=== PATIENT | male | born 1980 | race Caucasian/White ===

== ENCOUNTER 2021-09-02 17:55 | Emergency (ER) | payer OTHER ==
[~2021-09-02] VITALS: Ht 175 cm; Wt 90.0 kg
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
[2021-09-02 19:07] LABS: BASOPHILS % (AUTO) 0 % (0-10); EOSINOPHILS # (AUTO) 0.2 10^3/uL (0.0-0.3); EOSINOPHILS % (AUTO) 2 % (0-10); HEMATOCRIT 47 % (40-54); HEMOGLOBIN 15.6 g/dL (13.3-17.7); LYMPHOCYTES # (AUTO) 2.2 10^3/uL (1.0-4.0); LYMPHOCYTES % (AUTO) 32 % (12-44); MEAN CORPUSCULAR HEMOGLOBIN 29 pg (25-34); MEAN CORPUSCULAR HGB CONC 34 g/dL (32-36); MEAN CORPUSCULAR VOLUME 87 fL (80-99); MEAN PLATELET VOLUME 9.3 fL (9.0-12.2); MONOCYTES # (AUTO) 0.6 10^3/uL (0.0-1.0); MONOCYTES % (AUTO) 8 % (0-12); NEUTROPHILS # (AUTO) 4.1 10^3/uL (1.8-7.8); NEUTROPHILS % (AUTO) 58 % (42-75); PLATELET COUNT 241 10^3/uL (130-400); WHITE BLOOD COUNT 7.1 10^3/uL (4.3-11.0)
[2021-09-02 19:43] LABS: ALBUMIN 4.1 GM/DL (3.2-4.5); BILIRUBIN,TOTAL 0.5 MG/DL (0.1-1.0); CALCIUM 8.9 MG/DL (8.5-10.1); CREATININE SERUM 1.04 MG/DL (0.60-1.30); POTASSIUM 4.1 MMOL/L (3.6-5.0); TOTAL PROTEIN 6.9 GM/DL (6.4-8.2)
--- NOTE | 2021-09-02 20:20 | Diagnostic Imaging Report ---
Clinical indication: Patient with headache for the past 6 months. Exam: Axial CT scan of the brain without IV contrast with coronal and sagittal reformatted images. Auto Exposure Controls were utilized during the CT exam to meet ALARA standards for radiation dose reduction. Comparison: None. Findings: There is no evidence of acute cerebral infarct, intracranial hemorrhage or gross mass effect. The brain parenchymal volume appears appropriate for patient's age. There is normal persaud-white matter distinction. There is no significant midline shift or herniation. There is no evidence of hydrocephalus. The basal cisterns are unremarkable. The skull, extracranial soft tissue and orbits are unremarkable. There is moderate mucosal thickening and fluid in the left maxillary sinus. There is mild mucosal thickening and fluid in the right maxillary sinus. There is mild mucosal thickening involving the ethmoid sinus. Temporal bones show no significant abnormality. Impression: Paranasal sinus disease. Otherwise unremarkable CT scan of the brain. Dictated by: Dictated on workstation # [id number]
--- NOTE | 2021-09-02 20:24 | Diagnostic Imaging Report ---
CLINICAL INDICATION: Patient with chest wall pain on the right side x 6 months following moving a couch. Patient states it causes him to feel short of breath. Negative Covid test yesterday. EXAM: CT scan of the chest, abdomen and pelvis performed without IV or enteric contrast. Sagittal and coronal reformatted images were created. Auto Exposure Controls were utilized during the CT exam to meet ALARA standards for radiation dose reduction. COMPARISON: None. FINDINGS: Lungs are clear. There is no pleural effusion or pneumothorax. Small pleural tag involving the posterior aspects of the right lung seen. There is no lymphadenopathy or mediastinal mass or fluid collection. There is no axillary lymphadenopathy. The liver, spleen, pancreas, gallbladder and adrenal glands are unremarkable. Both kidneys are unremarkable. No hydronephrosis, stones or mass. The bladder is fluid-filled and unremarkable. Prostate gland shows no significant abnormality. There is no evidence for abdominal free air or free fluid. The appendix is unremarkable. There is no intestinal obstruction. Extra-abdominal and extra-pelvic soft tissue structures are unremarkable. There is chronic bilateral L5 spondylolysis with grade 1 anterolisthesis of L5 on S1. There are small spurs involving the thoracic spine. IMPRESSION: 1: There is no CT evidence of acute chest, abdomen or pelvic process. There are no acute fractures seen. 2: Chronic bilateral L5 spondylolysis with grade 1 anterolisthesis of L5 on S1. Dictated by: Dictated on workstation # [id number]
[2021-09-02] MEDS ORDERED: METH-732 PO (20:31)
[2021-09-02 20:51] VITALS: BP 135/91
== END 2021-09-02 20:52 | disposition home or self-care (01) ==
LOC: ER 17:59
DX: R20.2 Paresthesia of skin (principal)
CPT/HCPCS: 36415; 70450; 71250; 74176; 80053; 85025